=== PATIENT | male | born 1990 | race Caucasian/White ===

== ENCOUNTER 2016-03-21 10:51 | Emergency (ER) | payer SELFPAY ==
[2016-03-21 11:03] VITALS: TEMP 97.7; BMI 19.3
[2016-03-21 11:24] LABS: AUTOMATED BASOPHIL 0.5 % (0-2); AUTOMATED EOSINOPHIL 0.9 % (0-5); AUTOMATED NEUTROPHIL 72.6 % (45-76); MPV 9.2 fL (7.4-10.4)
[2016-03-21] MEDS ORDERED: NS 1,000 ML IV ONE (11:25)
[2016-03-21] MEDS ORDERED: MORPHINE 4 MG/ML INJECTION IV ONE (11:25)
--- NOTE | 2016-03-21 11:27 | EDPRACDOC ---
- General Information Chief Complaint: Abdominal Pain Stated Complaint: KIDNEY PAIN Time Seen by Provider: 03/21/16 11:21 Information Source: Patient Mode Of Arrival: Car Home Medications: Home Medications Ketorolac Tromethamine [Toradol] 10 mg PO Q6H PRN #20 tab 03/21/16 Ondansetron HCl [Zofran] 4 mg PO Q6H PRN #15 tab 03/21/16 Oxycodone HCl [Roxicodone] 5 mg PO Q4-6H PRN #20 tablet 03/21/16 Sumatriptan Succinate [Imitrex] 25 mg PO DIR PRN 03/21/16 Allergies/Adverse Reactions: Allergies Allergy/AdvReac Type Severity Reaction Status Date / Time No Known Allergies Allergy Verified 03/21/16 11:01 - History of Present Illness Onset: 2 days HPI: PT PRESENTS WITH SHARP RLQ ABDOMINAL PAIN RADIATING TO GROIN LIKE PRIOR KIDNEY STONES. Pain Location: Reports: RLQ Pain Context: Reports: Spontaneous Pain Severity: Moderate Pain Quality: Reports: Sharp Pain Radiation: Reports: Groin Associated Signs & Symptoms: Reports: Nausea. Denies: Vomiting, Diarrhea Oral Intake: Normal ED Past Medical History - History Reviewed Yes Nurses notes reviewed and agree except as marked - Patient Medical History GI/ History: Reports: Kidney Stones Psychological History: Reports: Depression - Social Medical History Smoking Status: Never smoker Lives In: Home EDM Review of Systems - Review of Systems ROS Negative Except as Marked: Yes All systems reviewed and were negative except as marked Gastrointestinal: Nausea, Pain (RLQ RADIATING TO RIGHT GROIN.). negative: Constipation, Diarrhea, Vomiting Genitourinary: negative: Dysuria - Physical Exam Constitutional: Alert Oriented to: Time, Person, Place Last recorded Vital Signs: Last Vital Signs Temp 97.7 F 03/21/16 11:01 Pulse 64 03/21/16 11:54 Resp 20 03/21/16 11:54 BP 119/66 03/21/16 11:54 Pulse Ox 98 03/21/16 11:54 Oxygen Pulse Oxygen Saturation 98 O2 Device Room Air Oxygen Flow Rate Fraction of Inspired Oxygen ( FIO2) - HEENT Head: negative: Deformity, Laceration Eye Exam: negative: Conjunctival Injection, Pale Conjunctiva Oropharynx: negative: Membranes Dry Nose: negative: Congestion, Discharge Neck: negative: Limited ROM - Respiratory/Cardiovascular Respiratory: Normal - CTA. negative: Accessory Muscle Use, Diminished, Tachypnea Cardiovascular: negative: Bradycardia, Tachycardia, Irregular - GI Auscultation: Normal Palpation: Normal Tenderness: Non tender. negative: Guarding, RLQ, Rebound, Rigidity - Musculoskeletal Back: negative: CVA Tenderness - Integumentary Skin: Warm, Dry. negative: Rash - Neurologic Memory Impaired: Normal Motor Function: Normal Mood Description: Anxious Thought: Coherent Perception: Normal - Results 03/21/16 11:09 03/21/16 11:09 WBC 8.7 xk/uL (3.8-10.8) 03/21/16 11:09 RBC 4.62 xM/uL (4.70-6.10) L 03/21/16 11:09 Hgb 14.7 g/dL (14.0-18.0) 03/21/16 11:09 Hct 43.3 % (42-52) 03/21/16 11:09 MCV 94 fL (80-94) 03/21/16 11:09 MCH 31.8 pg (27-32) 03/21/16 11:09 MCHC 33.9 g/dl (33-36) 03/21/16 11:09 RDW 14.2 % (11.5-14.5) 03/21/16 11:09 Plt Count 199 xk/uL (130-400) 03/21/16 11:09 MPV 9.2 fL (7.4-10.4) 03/21/16 11:09 Neut % (Auto) 72.6 % (45-76) 03/21/16 11:09 Lymph % (Auto) 17.0 % (17-44) 03/21/16 11:09 Ness % (Auto) 9.0 % (3-10) 03/21/16 11:09 Eos % (Auto) 0.9 % (0-5) 03/21/16 11:09 Baso % (Auto) 0.5 % (0-2) 03/21/16 11:09 Absolute Neuts (auto) 6.26 xk/uL (1.7-8.2) 03/21/16 11:09 Absolute Lymphs (auto) 1.48 xk/uL (0.65-4.75) 03/21/16 11:09 Sodium 140 mEq/L (137-146) 03/21/16 11:09 Potassium 3.9 mEq/L (3.5-5.1) 03/21/16 11:09 Chloride 102 mEq/L (98-107) 03/21/16 11:09 Carbon Dioxide 23 mMOL/L (22-33) 03/21/16 11:09 Anion Gap 19 mEq/L (8-16) H 03/21/16 11:09 BUN 10 MG/DL (9-20) 03/21/16 11:09 Creatinine 0.80 MG/DL (0.66-1.25) 03/21/16 11:09 Estimated GFR (MDRD) > 60 mL/min (>=60) 03/21/16 11:09 Glucose 104 MG/DL (70-99) H 03/21/16 11:09 Calculated Osmolality 268 MOs/Kg (270-290) L 03/21/16 11:09 Calcium 10.1 MG/DL (8.4-10.2) 03/21/16 11:09 Total Bilirubin 0.6 MG/DL (0.2-1.3) 03/21/16 11:09 AST 24 IU/L (17-59) 03/21/16 11:09 ALT 23 IU/L (21-72) 03/21/16 11:09 Alkaline Phosphatase 69 IU/L (38-126) 03/21/16 11:09 Total Protein 8.2 G/DL (6.3-8.2) 03/21/16 11:09 Albumin 4.8 G/DL (3.5-5.0) 03/21/16 11:09 Urine Color Dark yellow 03/21/16 11:05 Urine Clarity Clear 03/21/16 11:05 Urine pH 6.0 (5.0-8.0) 03/21/16 11:05 Ur Specific [place] 1.030 (1.003-1.035) 03/21/16 11:05 Urine Protein 1+ (NEG/TRACE) H 03/21/16 11:05 Urine Glucose (UA) Neg (NEGATIVE) 03/21/16 11:05 Urine Ketones Neg (NEGATIVE) 03/21/16 11:05 Urine Occult Blood 3+ (NEG/TRACE) H 03/21/16 11:05 Urine Nitrite Neg (NEGATIVE) 03/21/16 11:05 Urine Bilirubin Neg (NEGATIVE) 03/21/16 11:05 Urine Urobilinogen <2.0 MG/DL (0-1) 03/21/16 11:05 Ur Leukocyte Esterase Neg (NEGATIVE) 03/21/16 11:05 Urine RBC Tntc (0-2) H 03/21/16 11:05 Urine WBC 2-5 (0-2) H 03/21/16 11:05 Calcium Oxalate Crystal Occ 03/21/16 11:05 Urine Bacteria Few (NEG/FEW) 03/21/16 11:05 Hyaline Casts 2-5 (0-2) H 03/21/16 11:05 Urine Mucus Large (NEG/OCC) 03/21/16 11:05 Lab Results 03/21/16 03/21/16 03/21/16 11:09 11:09 11:05 WBC 8.7 RBC 4.62 L Hgb 14.7 Hct 43.3 MCV 94 MCH 31.8 MCHC 33.9 RDW 14.2 Plt Count 199 MPV 9.2 Neut % (Auto) 72.6 Lymph % (Auto) 17.0 Ness % (Auto) 9.0 Eos % (Auto) 0.9 Baso % (Auto) 0.5 Absolute Neuts (auto) 6.26 Absolute Lymphs (auto) 1.48 Sodium 140 Potassium 3.9 Chloride 102 Carbon Dioxide 23 Anion Gap 19 H BUN 10 Creatinine 0.80 Estimated GFR (MDRD) > 60 Glucose 104 H Calculated Osmolality 268 L Calcium 10.1 Total Bilirubin 0.6 AST 24 ALT 23 Alkaline Phosphatase 69 Total Protein 8.2 Albumin 4.8 Urine Color Dark yellow Urine Clarity Clear Urine pH 6.0 Ur Specific [place] 1.030 Urine Protein 1+ H Urine Glucose (UA) Neg Urine Ketones Neg Urine Occult Blood 3+ H Urine Nitrite Neg Urine Bilirubin Neg Urine Urobilinogen <2.0 Ur Leukocyte Esterase Neg Urine RBC Tntc H Urine WBC 2-5 H Calcium Oxalate Crystal Occ Urine Bacteria Few Hyaline Casts 2-5 H Urine Mucus Large Decision Time to Discharge: 13:12 - Departure Yes I personally saw and evaluated the patient. Disposition: Home Condition: Stable Final Diagnosis: Ureterolithiasis Instructions: Kidney Stones (ED) Education/Counseling Given To: Patient Education/Counseling Given Regarding: Diagnosis, Treatment, Prognosis, Follow Up Referrals: None,No Provider [Primary Care Provider] - One Week Magno Ray MD [Staff Physician] - As Needed Prescriptions: Ketorolac Tromethamine [Toradol] 10 mg PO Q6H PRN #20 tab PRN Reason: Pain Ondansetron HCl [Zofran] 4 mg PO Q6H PRN #15 tab PRN Reason: Nausea/Vomiting Oxycodone HCl [Roxicodone] 5 mg PO Q4-6H PRN #20 tablet PRN Reason: Breakthrough Pain Forms: Excuse Note
[2016-03-21 11:50] LABS: CA OXALATE OCC; LEUKOCYTES/URINE NEG (NEGATIVE); NITRITE/URINE NEG (NEGATIVE); RBC/URINE TNTC (0-2); URINE OCCULT BLOOD 3+ (NEG/TRACE)
[2016-03-21 11:52] LABS: BLOOD UREA NITROGEN 10 MG/DL (9-20); CALCIUM 10.1 MG/DL (8.4-10.2); CALCULATED OSMOLALITY 268 MOs/Kg (270-290); CHLORIDE 102 mEq/L (98-107); GLUCOSE 104 MG/DL (70-99); SODIUM LEVEL 140 mEq/L (137-146); TOTAL PROTEIN 8.2 G/DL (6.3-8.2)
--- NOTE | 2016-03-21 12:25 | DIRPT ---
CLINICAL DATA: Right-sided abdominal pain EXAM: CT ABDOMEN AND PELVIS WITHOUT CONTRAST TECHNIQUE: Multidetector CT imaging of the abdomen and pelvis was performed following the standard protocol without IV contrast. COMPARISON: 08/02/2014 FINDINGS: Lung bases are free of acute infiltrate or sizable effusion. The liver, gallbladder, spleen, adrenal glands and pancreas are within normal limits. Kidneys are well visualized bilaterally. The left kidney shows no renal calculi or obstructive changes. Right kidney demonstrates a few small 1-2 mm calcifications. No significant dilatation of the collecting system or ureter is noted. There is a small calcification along the expected course of the distal right ureter best seen on image number 69 of series 3. The bladder is well distended. No pelvic mass lesion is seen. The appendix is not well appreciated although no inflammatory changes to suggest appendicitis are noted. No acute bony abnormality is noted. IMPRESSION: Tiny nonobstructing right renal stone. Calcification in the expected region of the distal right ureter. This may represent a partially or intermittently obstructing stone. No obstructive changes are noted at this time. Electronically Signed By: Victorino Humphries M.D. On: 03/21/2016 12:23
[2016-03-21] MEDS ORDERED: KETOROLAC TROMETH 30 MG/ML VIAL IV STA (12:31)
[2016-03-21 13:30] VITALS: BP 109/67; PULSE 66
== END 2016-03-21 13:32 | disposition home or self-care (01) ==
LOC: ED 10:51
DX: N20.1 Calculus of ureter (principal)
CPT/HCPCS: 36415; 74176; 80053; 81001; 85025; 96361; 96374; 96375; 99283; J1885; J2270